=== PATIENT | male | born 1975 | race Caucasian/White ===

== ENCOUNTER 2019-10-15 13:39 | Emergency (ER) | payer OTHER ==
--- NOTE | 2019-10-15 13:43 | ERPHSYRPT ---
- History of Present Illness Time Seen by Provider: 10/15/19 13:43 Historian: patient, family Exam Limitations: no limitations Physician History: 44 y/o obese white male presents with intermittent right upper quad abd pain with nausea. not related to food intake. denies cp, denies soa, denies v/d. pt underwent a gallbladder u/s saturday and report was normal per pt. pain worse today. Timing/Duration: week(s) (3), intermittent, worse Quality: sharpness, stabbing Abdominal Pain Onset Location: RUQ Pain Radiation: no radiation, groin Severity of Pain-Max: moderate Severity of Pain-Current: mild Associated Symptoms: nausea Previous symptoms: no prior history Allergies/Adverse Reactions: No Known Drug Allergies Allergy (Verified 10/15/19 14:03) Home Medications: Benazepril HCl 20 mg PO BID 10/15/19 [History] Fexofenadine HCl [Lucy] 30 mg PO DAILY 10/15/19 [History] Loratadine 10 mg [Claritin 10 mg] 10 mg PO DAILY 10/15/19 [History] PANTOPRAZOLE 40 mg Tablet [Protonix 40MG Tablet] 40 mg PO QPM 10/15/19 [ History] Testosterone [Androgel] 5 gm TD DAILY 10/15/19 [History] - Review of Systems Constitutional: No Symptoms Eyes: No Symptoms Ears, Nose, & Throat: No Symptoms Respiratory: No Symptoms Cardiac: No Symptoms Abdominal/Gastrointestinal: Abdominal Pain, Nausea, No Vomiting, No Diarrhea Genitourinary Symptoms: No Symptoms Musculoskeletal: No Symptoms Skin: No Symptoms Neurological: No Symptoms Psychological: No Symptoms Endocrine: No Symptoms Hematologic/Lymphatic: No Symptoms Immunological/Allergic: No Symptoms All Other Systems: Reviewed and Negative - Past Medical History Pertinent Past Medical History: No Neurological History: No Pertinent History ENT History: No Pertinent History Cardiac History: No Pertinent History Respiratory History: No Pertinent History Endocrine Medical History: No Pertinent History Musculoskeletal History: No Pertinent History GI Medical History: No Pertinent History History: No Pertinent History Psycho-Social History: No Pertinent History Male Reproductive Disorders: No Pertinent History - Past Surgical History Neuro Surgical History: No Pertinent History Cardiac: No Pertinent History Respiratory: No Pertinent History Gastrointestinal: No Pertinent History Genitourinary: No Pertinent History Musculoskeletal: No Pertinent History Male Surgical History: No Pertinent History - Nursing Vital Signs Nursing Vital Signs: Initial Vital Signs Temperature 98.2 F 10/15/19 13:45 Pulse Rate 65 10/15/19 13:45 Blood Pressure 142/80 10/15/19 13:45 O2 Sat by Pulse Oximetry 97 10/15/19 13:45 Pain Scale Pain Intensity 6 - Physical Exam General Appearance: no apparent distress, alert, anxiety Eye Exam: PERRL/EOMI, eyes nml inspection Ears, Nose, Throat Exam: normal ENT inspection, moist mucous membranes Neck Exam: normal inspection, non-tender, supple, full range of motion Respiratory Exam: normal breath sounds, lungs clear, No chest tenderness, No respiratory distress, No airway intact Cardiovascular Exam: regular rate/rhythm, normal heart sounds, normal peripheral pulses Gastrointestinal/Abdomen Exam: soft, normal bowel sounds, tenderness (ruq), No guarding, No rebound Rectal Exam: not done Back Exam: normal inspection, normal range of motion, CVA tenderness Extremity Exam: normal inspection, normal range of motion, pelvis stable Neurologic Exam: alert, oriented x 3, cooperative, health care consultant II-XII nml as tested Skin Exam: normal color, warm, dry Lymphatic Exam: No adenopathy SpO2 Interpretation: normal O2 Delivery: Room Air - Course Nursing assessment & vital signs reviewed: Yes Ordered Tests: Active Orders 24 hr Category Date Time Status IV Insertion STAT Care 10/15/19 14:09 Active ABDOMEN AND PELVIS W/0 CONTRAS [CT] Stat Exams 10/15/19 14:07 Completed AMYLASE Stat Lab 10/15/19 14:20 Completed CBC W DIFF Stat Lab 10/15/19 14:20 Completed CMP Stat Lab 10/15/19 14:20 Completed LIPASE Stat Lab 10/15/19 14:20 Completed Lactic Acid Stat Lab 10/15/19 14:18 Completed UA W/RFX UR CULTURE Stat Lab 10/15/19 14:07 Uncollected Medication Summary Discontinued Medications Generic Name Dose Route Start Last Admin Trade Name Freq PRN Reason Stop Dose Admin Sodium Chloride 1,000 mls @ 999 mls/hr 10/15/19 14:09 10/15/19 14:28 Sodium Chloride 0.9% 1000 Ml IV 10/15/19 15:09 999 mls/hr .Q1H1M STA Administration Sodium Chloride Confirm 10/15/19 14:26 Sodium Chloride 0.9% 1000 Ml Administered 10/15/19 14:27 Dose 1,000 mls @ ud .ROUTE .STK-MED ONE Lab/Rad Data: Laboratory Result Diagrams 10/15/19 14:20 10/15/19 14:20 Laboratory Results 10/15/19 10/15/19 10/15/19 Range/Units 14:20 14:20 14:18 WBC 9.2 (4.0-10.5) K/mm3 RBC 5.70 H (4.1-5.6) M/mm3 Hgb 17.6 (12.5-18.0) gm/dl Hct 48.7 (42-50) % MCV 85.4 (78-100) fl MCH 30.9 (26-32) pg MCHC 36.1 H (32-36) g/dl RDW 12.7 (11.5-14.0) % Plt Count 271 (150-450) K/mm3 MPV 9.9 (7.5-11.0) fl Gran % 56.5 (36.0-66.0) % Eos # (Auto) 0.19 (0-0.5) Absolute Lymphs (auto) 2.84 (1.0-4.6) Absolute Monos (auto) 0.92 (0.0-1.3) Lymphocytes % 30.9 (24.0-44.0) % Monocytes % 10.0 (0.0-12.0) % Eosinophils % 2.1 (0.00-5.0) % Basophils % 0.5 (0.0-0.4) % Absolute Granulocytes 5.20 (1.4-6.9) Basophils # 0.05 (0-0.4) Sodium 136 L (137-145) mmol/L Potassium 4.4 (3.5-5.1) mmol/L Chloride 97 L (98-107) mmol/L Carbon Dioxide 29 (22-30) mmol/L Anion Gap 14.0 (5-15) MEQ/L BUN 12 (9-20) mg/dL Creatinine 0.74 (0.66-1.25) mg/dL Estimated GFR > 60.0 ML/MIN Glucose 323 H (74-106) mg/dL Lactic Acid 1.8 (0.4-2.0) Calcium 9.9 (8.4-10.2) mg/dL Total Bilirubin 0.70 (0.2-1.3) mg/dL AST 38 (17-59) U/L ALT 36 (0-50) U/L Alkaline Phosphatase 63 (38-126) U/L Serum Total Protein 8.3 H (6.3-8.2) g/dL Albumin 4.6 (3.5-5.0) g/dL Amylase 96 (30-110) U/L Lipase 208 (23-300) U/L - Progress Progress: pain not gone completely, re-examined Progress Note: 10/15/19 15:11 ct abd/pelvis-mild fecal stasis Counseled pt/family regarding: lab results, diagnosis, need for follow-up, rad results - Departure Departure Disposition: Home Clinical Impression: Right sided abdominal pain Condition: Stable Critical Care Time: No Referrals: LYRIC CASTRO MD [Primary Care Provider] - Additional Instructions: avoid fatty, greasy spicy food. follow up with primary doctor for further management
[2019-10-15 14:03] VITALS: BP 142/80
[2019-10-15] MEDS ORDERED: Sodium Chloride 0.9% 1000 ML 1,000 ML IV STA (14:09)
[2019-10-15] MEDS ORDERED: Sodium Chloride 0.9% 1000 ML 1,000 ML ONE (14:26)
[2019-10-15 14:41] LABS: BASOPHIL % 0.5 % (0.0-0.4); Basophil (Absolute #) 0.05 (0-0.4); Eosinophil % 2.1 % (0.00-5.0); Eosinophil (Absolute #) 0.19 (0-0.5); Hematocrit 48.7 % (42-50); Hemoglobin 17.6 gm/dl (12.5-18.0); Lymphocyte (Absolute #) 2.84 (1.0-4.6); Lymphocytes % 30.9 % (24.0-44.0); Mean Cell Volume 85.4 fl (78-100); Mean Corpuscular Hemoglobin 30.9 pg (26-32); Mean Corpuscular Hgb Concent. 36.1 g/dl (32-36); Mean Platelet Volume 9.9 fl (7.5-11.0); Monocyte (Absolute #) 0.92 (0.0-1.3); Neutrophil % 56.5 % (36.0-66.0); Platelet Count 271 K/mm3 (150-450); Red Cell Distribution Width 12.7 % (11.5-14.0); White Blood Count 9.2 K/mm3 (4.0-10.5)
[2019-10-15 14:45] LABS: ALBUMIN 4.6 g/dL (3.5-5.0); ALKALINE PHOSPHATASE 63 U/L (38-126); AMYLASE 96 U/L (30-110); BLOOD UREA NITROGEN 12 mg/dL (9-20); CHLORIDE 97 mmol/L (98-107); Calcium 9.9 mg/dL (8.4-10.2); Carbon Dioxide 29 mmol/L (22-30); Creatinine 1 0.74 mg/dL (0.66-1.25); Glucose 323 mg/dL (74-106); LIPASE 208 U/L (23-300); Potassium 4.4 mmol/L (3.5-5.1); SGOT/AST 38 U/L (17-59); SGPT/ALT 36 U/L (0-50); SODIUM 136 mmol/L (137-145); Total Protein 8.3 g/dL (6.3-8.2)
--- NOTE | 2019-10-15 15:00 | XRAY ---
Indication: Right mid to lower abdomen pain. Multiple contiguous axial images obtained through the abdomen and pelvis without contrast as ordered. Comparison: None Lung bases demonstrates minimal bibasilar dependent atelectasis. No infiltrate or effusion. Heart is not enlarged. Noncontrasted stomach and bowel loops appear nonobstructed. Normal air-filled appendix. Mild scattered colonic fecal debris. No free fluid/air. Mild fatty liver and 13.9 cm splenomegaly. Remaining liver, gallbladder, pancreas, spleen, adrenal glands, kidneys, ureters, and bladder appear unremarkable for noncontrast exam. Minimal aortoiliac calcifications without AAA. Osseous structures intact with minimal degenerative changes throughout the thoracolumbar spine. Impression: 1. Mild fecal stasis without obstruction, mild fatty liver, and splenomegaly. 2. Remaining CT abdomen/pelvis without contrast exam is negative.
[2019-10-15 15:28] VITALS: PULSE 63; O2SAT 100
== END 2019-10-15 15:59 | disposition home or self-care (01) ==
LOC: ED 13:39
DX: R10.9 Unspecified abdominal pain (principal)
CPT/HCPCS: 36000; 36415; 74176; 80053; 82150; 83605; 83690; 85025; 96360; 99284

== ENCOUNTER 2020-11-28 15:52 | Emergency (ER) | payer BC, OTHER ==
--- NOTE | 2020-11-28 16:01 | ERPHSYRPT ---
- History of Present Illness Time Seen by Provider: 11/28/20 16:01 Historian: patient Exam Limitations: no limitations Physician History: This is a 45-year-old obese white male who has had a history of abdominal pain in the past as well as a history of [id number] diabetes, gastroesophageal reflux disease and hypertension and presents with sudden onset of periumbilical/umbilical abdominal pain when he was in a crawl space doing a lot of stretching of his abdomen twisting and bending. It occurred approximately 11:00. When he would lie down the pain would nearly resolved. Patient states he has a known history of an umbilical hernia. He is seen the general surgeon for this but they recommend weight loss for him prior to any repair of a nonincarcerated umbilical hernia. Patient has not had any nausea vomiting or diarrhea. He has no chest pain or shortness of breath. Patient had a shake college he shake at approximately 8 AM this morning. He attempted to eat a few bites at lunch and he was unable to do so. Timing/Duration: today Quality: aching Abdominal Pain Onset Location: periumbilical Pain Radiation: no radiation Severity of Pain-Max: moderate Severity of Pain-Current: none Modifying Factors: Improves With: movement, position (Resolves when lying flat) Associated Symptoms: denies symptoms Previous symptoms: same symptoms as today Allergies/Adverse Reactions: No Known Drug Allergies Allergy (Verified 11/28/20 16:13) Home Medications: Benazepril HCl 40 mg PO DAILY 10/15/19 [History] PANTOPRAZOLE 40 mg Tablet [Protonix 40MG Tablet] 40 mg PO QPM 10/15/19 [History] Testosterone [Androgel] 5 gm TD DAILY 10/15/19 [History] Glimepiride 2 mg [Amaryl 2 MG] 1 mg PO DAILY 11/28/20 [History] Metformin HCl 850 mg [Glucophage 850 MG] 850 mg PO BID 11/28/20 [History] Phentermine HCl [Adipex-P] 37.5 mg PO DAILY 11/28/20 [History] Travel Risk - International Travel Have you traveled outside of the country in past 3 weeks: No - Coronavirus Screening Are you exhibiting any of the following symptoms?: No Close contact with a COVID-19 positive Pt in past 14-21 Days: No - Review of Systems Constitutional: No Symptoms Eyes: No Symptoms Ears, Nose, & Throat: No Symptoms Respiratory: No Symptoms Cardiac: No Symptoms Abdominal/Gastrointestinal: Abdominal Pain (Localized periumbilical) Genitourinary Symptoms: No Symptoms Musculoskeletal: No Symptoms Skin: No Symptoms Neurological: No Symptoms Psychological: No Symptoms Endocrine: No Symptoms Hematologic/Lymphatic: No Symptoms Immunological/Allergic: No Symptoms All Other Systems: Reviewed and Negative - Past Medical History Pertinent Past Medical History: No Neurological History: No Pertinent History ENT History: No Pertinent History Cardiac History: No Pertinent History Respiratory History: No Pertinent History Endocrine Medical History: No Pertinent History Musculoskeletal History: No Pertinent History GI Medical History: No Pertinent History History: No Pertinent History Psycho-Social History: No Pertinent History Male Reproductive Disorders: No Pertinent History Other Medical History: low testosterone - Past Surgical History Past Surgical History: Yes Neuro Surgical History: No Pertinent History Cardiac: No Pertinent History Respiratory: No Pertinent History Gastrointestinal: No Pertinent History Genitourinary: No Pertinent History Musculoskeletal: No Pertinent History Male Surgical History: No Pertinent History Other Surgical History: carpal tunnel - Social History Smoking Status: Former smoker Exposure to second hand smoke: No Drug Use: none Patient Lives Alone: No - Nursing Vital Signs Nursing Vital Signs: Initial Vital Signs Temperature 97.9 F 11/28/20 15:58 Pulse Rate 85 11/28/20 15:58 Blood Pressure 132/75 11/28/20 15:58 O2 Sat by Pulse Oximetry 99 11/28/20 15:58 Pain Scale Pain Intensity 5 - Physical Exam General Appearance: no apparent distress, alert, obese Eye Exam: PERRL/EOMI, eyes nml inspection Ears, Nose, Throat Exam: normal ENT inspection, moist mucous membranes Neck Exam: normal inspection, non-tender, supple, full range of motion Respiratory Exam: normal breath sounds, lungs clear, airway intact, No chest tenderness, No respiratory distress Cardiovascular Exam: regular rate/rhythm, normal heart sounds, normal peripheral pulses Gastrointestinal/Abdomen Exam: soft, normal bowel sounds, tenderness (At the level of the umbilicus in the midline.), guarding, No rebound Rectal Exam: not done Back Exam: normal inspection, normal range of motion, No CVA tenderness, No vertebral tenderness Extremity Exam: normal inspection, normal range of motion, pelvis stable Neurologic Exam: alert, oriented x 3, cooperative, billing and accounting staff assistant II-XII nml as tested, normal mood/affect, nml cerebellar function, nml station & gait, sensation nml Skin Exam: normal color, warm, dry Lymphatic Exam: No adenopathy SpO2 Interpretation: normal O2 Delivery: Room Air Procedures - Additional Procedures Progress: Procedure note: This patient had an incarcerated umbilical hernia. After the patient received Dilaudid intramuscularly 1 mg, 1 mg of intramuscular Ativan and 4 mg of ODT Zofran, we waited for several minutes. The patient was in the supine position. Week began compressing the periumbilical and umbilical area. We were able to successfully reduce his incarcerated umbilical hernia. The defect appeared to be 1 to 1-1/2 cm in greatest diameter. Patient then immediately experienced pain relief and was able to bend and twist and sit up and walk without pain. - Course Nursing assessment & vital signs reviewed: No Ordered Tests: Active Orders 24 hr Category Date Time Status IV Insertion STAT Care 11/28/20 16:13 Active ABDOMEN AND PELVIS W/0 CONTRAS [CT] Stat Exams 11/28/20 16:25 Completed AMYLASE Stat Lab 11/28/20 16:13 Ordered CBC W DIFF Stat Lab 11/28/20 16:13 Ordered CMP Stat Lab 11/28/20 16:13 Ordered UA W/RFX UR CULTURE Stat Lab 11/28/20 16:13 Ordered Medication Summary Discontinued Medications Generic Name Dose Route Start Last Admin Trade Name Cecil PRN Reason Stop Dose Admin Hydromorphone HCl 1 mg 11/28/20 16:50 11/28/20 17:02 Hydromorphone 1 Mg/Ml Injection IM 11/28/20 16:51 1 mg STAT ONE Administration Hydromorphone HCl Confirm 11/28/20 16:55 Hydromorphone 1 Mg/Ml Injection Administered 11/28/20 16:56 Dose 1 mg .ROUTE .STK-MED ONE Lorazepam 1 mg 11/28/20 16:50 11/28/20 17:00 Ativan 2 Mg/1 Ml Vial IM 11/28/20 16:51 1 mg STAT ONE Administration Lorazepam Confirm 11/28/20 16:55 Ativan 2 Mg/1 Ml Vial Administered 11/28/20 16:56 Dose 2 mg .ROUTE .STK-MED ONE Ondansetron HCl 4 mg 11/28/20 16:51 11/28/20 16:59 Zofran Odt 4 Mg PO 11/28/20 16:52 4 mg STAT ONE Administration Ondansetron HCl Confirm 11/28/20 16:55 Zofran Odt 4 Mg Administered 11/28/20 16:56 Dose 4 mg .ROUTE .STK-MED ONE - Progress Progress: pain not gone completely, re-examined Progress Note: 11/28/20 16:53 CAT scan of the abdomen pelvis without contrast shows a new umbilical hernia with herniated knuckle of small bowel without obvious incarceration/obstruction on this noncontrast exam. Counseled pt/family regarding: diagnosis, need for follow-up, rad results - Departure Departure Disposition: Home Clinical Impression: Incarcerated umbilical hernia Condition: Stable Critical Care Time: No Referrals: LYRIC CASTRO MD [Primary Care Provider] - Additional Instructions: Avoid heavy lifting greater than 10 to 15 pounds until you have been evaluated by your general surgeon. Call your general surgeon's office tomorrow and let them know you have had an incarcerated umbilical hernia. Diet as tolerated. Forms: Work/School Release Form
[2020-11-28 16:15] VITALS: PULSE 85; O2SAT 99
--- NOTE | 2020-11-28 16:43 | XRAY ---
Indication: Umbilical pain. Multiple contiguous axial images obtained through the abdomen and pelvis without contrast as ordered. Comparison: October 15, 2019. Lung bases are clear. Heart is not enlarged. Noncontrasted stomach and bowel loops appear nonobstructed. Normal appendix. No free fluid/air. Again fatty liver and 13.3 cm splenomegaly. Remaining liver, gallbladder, pancreas, spleen, adrenal glands, kidneys, ureters, and bladder appear unremarkable for noncontrast exam. Minimal aortoiliac calcifications without AAA. Osseous structures intact again with mild degenerative changes throughout the thoracolumbar spine. New small umbilical hernia with herniated knuckle of small bowel measuring 2.3 x 2.8 x 4.4 cm without obvious incarceration/obstruction on this noncontrast exam. Impression: 1. New umbilical hernia with herniated knuckle of small bowel as detailed. 2. Again incidental fatty liver and splenomegaly.
[2020-11-28] MEDS ORDERED: Hydromorphone 1 mg/ml Injection ONE (16:55)
[2020-11-28] MEDS ORDERED: Ativan 2 MG/1 ML VIAL ONE (16:55)
[2020-11-28] MEDS ORDERED: ZOFRAN ODT 4 MG ONE (16:55)
[2020-11-28] MEDS: ZOFRAN ODT 4 MG PO ONE (16:59)
[2020-11-28] MEDS: Ativan 2 MG/1 ML VIAL IM ONE (17:00)
[2020-11-28] MEDS: Hydromorphone 1 mg/ml Injection IM ONE (17:02)
[2020-11-28 17:37] VITALS: BP 122/76
== END 2020-11-28 17:38 | disposition home or self-care (01) ==
LOC: ED 15:52
DX: R10.33 Periumbilical pain (principal); K42.0 Umbilical hernia with obstruction, without gangrene; E11.9 Type 2 diabetes mellitus without complications; I10 Essential (primary) hypertension; Z79.899 Other long term (current) drug therapy
CPT/HCPCS: 74176; 96372; 99284; J1170; J2060; Q0162